=== PATIENT | male | born 1990 | race Caucasian/White ===

== ENCOUNTER 2018-02-17 16:38 | Emergency (ER) | payer BC, SELFPAY ==
[2018-02-17 16:39] VITALS: BP 160/106; PULSE 86; RESP 16; TEMP 36.7; O2SAT 100
--- NOTE | 2018-02-17 16:59 | ED.RN ---
PT WITH PARTIAL AMPUTATION OF TIP OF LEFT INDEX FINGER. SITE BLEEDING. COVERED WITH 4X4 GAUZE DRESSING. DR. HAYNES AT BEDSIDE.
--- NOTE | 2018-02-17 17:09 | RAD_ITS ---
STUDY: X-RAY - LEFT HAND REASON FOR EXAM: Male, 27 years old. Laceration index finger TECHNIQUE: 3 view(s) of the hand. COMPARISON: None. FINDINGS: Normal radiocarpal articulation. Normal distal radioulnar joint. Normal visualized carpal bones. Normal carpal articulations Normal carpometacarpal articulation of the thumb. Normal second through fifth carpometacarpal joints. Normal metacarpi. Normal metacarpophalangeal joint of the thumb. Normal interphalangeal joint of the thumb. Normal proximal and distal phalanges of the thumb. Normal metacarpophalangeal joints of the second through fifth fingers. Normal proximal and distal interphalangeal joints of the second through fifth fingers. There is been amputation of the soft tissue and tip of the second digit. There is a punctate foreign body adjacent to the radial side of the distal phalanx. There is overlying soft tissue irregularity. RAD/Hand Min 3 Views IMPRESSION: Amputation of the tuft and soft tissue of the distal phalanx of the second digit Electronically Signed: Pamela Estevez MD at 17:43 EST Tel , Service support ,
--- NOTE | 2018-02-17 17:16 | ED.VISSUMM ---
- ER Visit Summary Date of Service: 02/17/18 Chief Complaint: [] Amputation tip of left index finger at home today using cutting tool History of Present Illness: The patient is a 27 M [] was using a cutting tool he is right-hand dominant he suffered amputation of the tip of the left index finger, no other complaints his tetanus status is unclear Physical Examination: [] Vital signs are within normal range, his general medical exam is unremarkable head neck chest abdomen unremarkable the left hand the only issue is the tip of the left index finger there is a complete amputation mid nail level there is no bony prominence or step-off. DIP PIP IP joint flexion fully intact wrist hand function is normal the rest of exam is unremarkable Test Results: [] Emergency Department Course and Treatment: [] He received immediate digital block x-ray of the hand tetanus update discussion with orthopedics Dr. Baum recommended the patient be seen by hand service, hand service related to plastics was not available tonight per staff We then contacted [facility] emergency department, [place] they have the hand service accepted him he will be transferred there for further management Wound was cleansed bulky hand dressing applied oral Keflex oral [place] to help with pain he is instructed to go directly to [facility] for hand management Treatment Plan: [] Disposition: [] Transfer via personal car to [facility] emergency department Impression: [] Amputation tip left index finger This note was generated with [employer] dictation software. It may contain incorrect words, spelling, and punctuation that were not noted in review of the chart prior to signing ED Disposition - Plan for ED Patient: Chief Complaint: Laceration Referrals: Baudilio Samuel III, MD [STAFF PHYSICIAN] -
[2018-02-17] MEDS: Diphth,Pertuss(Acell),Tet Vac 0.5 ML Vial IM (17:55)
--- NOTE | 2018-02-17 18:37 | ED.DEP ---
ED Disposition - Plan for ED Patient: Chief Complaint: Laceration Instructions: ED Laceration Amputation Finger Tip Open Tx Prescriptions: Hydrocodone Bitart/Apap 5-325 [[place] 5MG-325MG] 1 tab PO Q4H PRN PRN 2 Days #10 tab PRN Reason: Pain Cephalexin [Keflex] 500 mg PO Q6 #40 cap Referrals: Baudilio Samuel III, MD [STAFF PHYSICIAN] - Additional Instructions: Go directly to [facility] emergency department to be seen by the hand surgery team
--- NOTE | 2018-02-17 18:40 | DCINST.ED_ITS ---
ED Disposition - Plan for ED Patient: Chief Complaint: Laceration Instructions: ED Laceration Amputation Finger Tip Open Tx Prescriptions: Hydrocodone Bitart/Apap 5-325 [[place] 5MG-325MG] 1 tab PO Q4H PRN PRN 2 Days #10 tab PRN Reason: Pain Cephalexin [Keflex] 500 mg PO Q6 #40 cap Referrals: Baudilio Samuel III, MD [STAFF PHYSICIAN] - Additional Instructions: Go directly to [facility] emergency department to be seen by the hand surgery team
[2018-02-17] MEDS: Cephalexin 250 MG Capsule 500 MG PO (18:51)
[2018-02-17 19:03] VITALS: BP 152/90; PULSE 91; RESP 15; O2SAT 99
--- NOTE | 2018-02-17 19:03 | ED.RN ---
PT GIVEN WRITTEN AND VERBAL DISCHARGE INSTRUCTIONS AND HOME GOING PRESCRIPTIONS. PT VERBALIZES UNDERSTANDING. PT SENT WITH DISC. HAND WRAPPED. PT TOLERATED WELL. AMBULATES OUT OF DEPT BY SELF. [facility] NOTIFIED.
--- OUTSIDE RECORDS SUMMARY | 2018-04-06 02:32 | XMS RPT_ITS ---
:1990 Author Organization OHIP Care Team Providers Name Role Phone MARGARITA TOM Admitting Unavailable MARGARITA TOM Attending Unavailable AA NO PCP, NO PCP Primary Care Unavailable YURY LOZANO Admitting Unavailable YURY LOZANO Attending Unavailable AA NO PCP, NO PCP Primary Care Unavailable Marv Norris Attending Unavailable Lorin Clemente Primary Care Unavailable PROBLEMS PROBLEMS DATE TYPE CONDITION / CODE ATTENDING STATUS SOURCE 03/12/2018 Active LACERATION W/O FB YURY LOZANO Active [facility] LT HAND INITIAL / B Hospital S61.412A(ICD-10) Repository 03/12/2018 Principle LACERATION W/O FB YURY LOZANO Active [facility] Diagnosis LT HAND INITIAL / B Hospital S61.412A(ICD-10) Repository 03/12/2018 Secondary ACQUIRED ABSENCE YURY LOZANO Active [facility] Diagnosis OF LEFT FINGERS / B Hospital Z89.022(ICD-10) Repository 02/28/2018 Active CMPL TRAUMAT MCP MARGARITA TOM Active [facility] AMP LT IF INITIAL Hospital / Repository S68.111A(ICD-10) 02/28/2018 Principle PART TRAU VAISHALI MARGARITA Active [facility] Diagnosis TRANSPHAL AMP LT Hospital IF INIT / Repository S68.621A(ICD-10) 02/28/2018 Secondary CNTCT PWR GARDN VAISHALI MARGARITA Active [facility] Diagnosis HND TOOL MACH Hospital INIT / Repository W29.3XXA(ICD-10) 02/17/2018 Unknown R52 - Pain, [place], Active [place] unspecified / [facility] R52(ICD-10) Hospital Repository PROCEDURES PROCEDURES No Procedure Records FoundRESULTS RESULTS XR HAND LEFT 3 PLUS Observed: 02/27/2018 Status: F Source: [facility] VIEWS 3:45 PM HOSPITAL REPOSITORY LEFT HAND History: Hand pain, second digit injury, laceration Findings: Three views show partial amputation with soft tissue and bony loss of the tuft of the second distal phalanx. There is adjacent soft tissue swelling and laceration. There is no joint dislocation or periosteal reaction. There is overlying stabilizing device that could obscure other abnormalities. IMPRESSION: Partial amputation with bone and soft tissue loss of the second distal phalanx. Report Dictated on Authenticated by: Karina Jones On: 02/27/2018 15:42 Read by: KARINA JONES MD Date: 02/27/2018 15:42 EMERGENCY DEPARTMENT Observed: 02/17/2018 Status: F Source: [place] SUMMARY 11:00 PM [facility] REPOSITORY [facility] Medical Records Department [address] [place] [address] Emergency Department Summary 02/17/18 1716 MR#: [id number] Acct: [id number] Name: GRACIELA BETANCOURT Rep #: [id number] : 1990 27 From: Marv Norris MD PCP: Lorin Clemente MD Status: DEP ER - ER Visit Summary Date of Service: 02/17/18 Chief Complaint: [] Amputation tip of left index finger at home today using cutting tool History of Present Illness: The patient is a 27 M [] was using a cutting tool he is right-hand dominant he suffered amputation of the tip of the left index finger, no other complaints his tetanus status is unclear Physical Examination: [] Vital signs are within normal range, his general medical exam is unremarkable head neck chest abdomen unremarkable the left hand the only issue is the tip of the left index finger there is a complete amputation mid nail level there is no bony prominence or step-off. DIP PIP IP joint flexion fully intact wrist hand function is normal the rest of exam is unremarkable Test Results: [] Emergency Department Course and Treatment: [] He received immediate digital block x-ray of the hand tetanus update discussion with orthopedics Dr. Baum recommended the patient be seen by hand service, hand service related to plastics was not available tonight per staff We then contacted [facility] emergency department, [place] they have the hand service accepted him he will be transferred there for further management Wound was cleansed bulky hand dressing applied oral Keflex oral [place] to help with pain he is instructed to go directly to [facility] for hand management Treatment Plan: [] Disposition: [] Transfer via personal car to [facility] emergency department Impression: [] Amputation tip left index finger This note was generated with [employer] dictation software. It may contain incorrect words, spelling, and punctuation that were not noted in review of the chart prior to signing ED Disposition - Plan for ED Patient: Chief Complaint: Laceration Referrals: Baudilio Samuel III, MD [STAFF PHYSICIAN] - What to do if you have Problems For any increased pain, shortness of breath, bleeding, nausea or vomiting, chest pain, or any unexpected problems, contact your Primary Care Provider. Call [facility] ([phone]) or report to the closest Emergency Room. Call 911 if necessary. 02/17/18 2300 <Electronically signed by Marv Norris MD> Date Marv Norris MD Cosigner Signature (If Indicated): Date CC: Lorin Clemente MD DISCHARGE INSTRUCTION Observed: 02/17/2018 Status: F Source: [place] 6:40 PM [facility] REPOSITORY [facility] Medical Records Department [address] [place] [address] Discharge Instruction 02/17/18 1837 MR#: [id number] Acct: [id number] Name: GRACIELA BETANCOURT Rep #: [id number] : 1990 27 From: Marv Norris MD PCP: Lorin Clemente MD Status: REG ER ED Disposition - Plan for ED Patient: Chief Complaint: Laceration Instructions: ED Laceration Amputation Finger Tip Open Tx Prescriptions: Hydrocodone Bitart/Apap 5-325 [[place] 5MG-325MG] 1 tab PO Q4H PRN PRN 2 Days #10 tab PRN Reason: Pain Cephalexin [Keflex] 500 mg PO Q6 #40 cap Referrals: Baudilio Samuel III, MD [STAFF PHYSICIAN] - Additional Instructions: Go directly to [facility] emergency department to be seen by the hand surgery team What to do if you have Problems For any increased pain, shortness of breath, bleeding, nausea or vomiting, chest pain, or any unexpected problems, contact your Primary Care Provider. Call [facility] ([phone]) or report to the closest Emergency Room. Call 911 if necessary. 02/17/18 1840 <Electronically signed by Marv Norris MD> Date Marv Norris MD Cosigner Signature (If Indicated): Date CC: Lorin Clemente MD HAND MIN 3 VIEWS Observed: 02/17/2018 Status: F Source: [place] 5:10 PM [facility] REPOSITORY [facility] Imaging Services [address] [place] [address] Hand Min 3 Views MR#: [id number] Acct: [id number] Name: GRACIELA BETANCOURT Rep #: [id number] : 1990 M 27 From: Pamela Estevez MD PCP: Lorin Clemente MD Status: REG ER Study: Hand Min 3 Views Date of Exam: 02/17/18 Exam# [id number] Ordering Dr: Marv Norris MD STUDY: X-RAY - LEFT HAND REASON FOR EXAM: Male, 27 years old. Laceration index finger TECHNIQUE: 3 view(s) of the hand. COMPARISON: None. FINDINGS: Normal radiocarpal articulation. Normal distal radioulnar joint. Normal visualized carpal bones. Normal carpal articulations Normal carpometacarpal articulation of the thumb. Normal second through fifth carpometacarpal joints. Normal metacarpi. Normal metacarpophalangeal joint of the thumb. Normal interphalangeal joint of the thumb. Normal proximal and distal phalanges of the thumb. Normal metacarpophalangeal joints of the second through fifth fingers. Normal proximal and distal interphalangeal joints of the second through fifth fingers. There is been amputation of the soft tissue and tip of the second digit. There is a punctate foreign body adjacent to the radial side of the distal phalanx. There is overlying soft tissue irregularity. RAD/Hand Min 3 Views IMPRESSION: Amputation of the tuft and soft tissue of the distal phalanx of the second digit Electronically Signed: Pamela Estevez MD at 17:43 EST Tel , Service support , CC: MD Luis Norris; Lorin Clemente MD Crts: Signed ALLERGIES ALLERGIES DATE TYPE / CODE NAME / CODE REACTION SEVERITY SOURCE 02/17/2018 Drug No Known Unknown [facility] Allergy/4160 Allergies/F00 Hospital 65723(SNOMED 8677001(RXNOR Repository CT) M) Drug No Known Drug [facility] Allergy/4160 Allergies/900 Hospital 13326(SNOMED 590(RXNORM) Repository CT) ENCOUNTERS ENCOUNTERS ADMIT/DISCHARGE ACCOUNT NUMBER ADMITTING ENCOUNTER LOCATION SOURCE CLASS 02/27/2018/02/28/20 [id number] [facility] Ambulatory Building:[address] Repository 02/17/2018/02/18/20 [id number] [facility] Ambulatory Building[address] [place] SMHLUR03Hsb: Hospital [id number] Repository 02/17/2018/02/18/20 [id number] Emergency [address] ding:ED Repository PAYERS PAYERS ENCOUNTER GUARANTOR PAYER SUBSCRIBER SOURCE 02/27/2018 [facility] Insurance:[facility] B: PPOPolic Number: B: Repository [id number] [address] Date:[id number] [place], [place] [id number] [address]Yrc: [phone]: [phone] , [place] [address]Fwz: [phone] (HP) [phone] (HP) () 02/17/2018 [facility] Insurance:[facility] B: PPOPolicy Number: B: Repository [id number] [address] Date:1791-65-[address] [place] [address], [place] [facility] [address]Spm: [phone]: [phone]) , [place] [address]Xzp: [phone] () [phone] (HP) () 02/17/2018 GRACIELA [facility] MOHAMUD [place] JADON Insurance:[facility] LEX [facility] [address] Number: B: [id number] [id number] Repository [address]Tpo: (878) Date:[phone] () [id number] [place] [address]MU: 02/17/2018 Secondary NOT GIVENUNK [place] Insurance:SELF PAY [facility] Number: Effective Repository Date:2018-02-17
== END 2018-02-17 19:12 | disposition home or self-care (01) ==
LOC: ED 17:27
PROVIDERS: Emergency Provider Emergency Medicine; Family Provider Family Medicine; PCP Family Medicine
DX: S61.301A Unspecified open wound of left index finger with damage to nail, initial encounter (principal); W26.8XXA Contact with other sharp object(s), not elsewhere classified, initial encounter; Y93.9 Activity, unspecified; Y92.9 Unspecified place or not applicable
CPT/HCPCS: 73130; 90715; 99283

== ENCOUNTER → 2020-02-14 14:57 | Outpatient (CLI) | payer BC, SELFPAY ==
[2020-02-14 11:01] VITALS: BMI 18.8
== END ==
PROVIDERS: PCP Family Medicine; Referring Provider Physician Assistant Medical; Visit Provider Physician Assistant Medical
DX: U07.1 COVID-19 (principal)
CPT/HCPCS: 87635; U0003

== ENCOUNTER 2021-05-16 10:03 | Outpatient (CLI) | payer BC, SELFPAY ==
--- NOTE | 2021-05-16 10:09 | RAD_ITS ---
STUDY: X-RAY - ESOPHAGUS (BARIUM SWALLOW) WITH FLUOROSCOPY REASON FOR EXAM: Male, 30 years old. DYSPHAGIA 12MM TABLET TECHNIQUE: 17 view(s) of the esophagus were obtained following swallowing of barium. FLUOROSCOPY TIME (if supplied): (31 seconds) minutes/seconds COMPARISON: None. FINDINGS: There is no demonstrated esophageal foreign body. There is no demonstrated stricture or mucosal abnormality. Normal gastroesophageal junction, without a demonstrated hiatal hernia. The patient ingested a 12 mm tablet of barium without any difficulty. Normal visualized aortic arch and descending thoracic aorta. Normal visualized pulmonary parenchyma. Normal visualized osseous structures of the thorax. RAD/Esophagus Single Contrast IMPRESSION: Normal plain film x-ray examination (barium swallow) of the esophagus. Electronically Signed: Donnie Silvestre MD at 10:37 EST ,
== END 2021-05-16 23:59 | disposition home or self-care (01) ==
LOC: RAD 10:05
PROVIDERS: PCP Family Medicine; Visit Provider Internal Medicine Gastroenterology
DX: R13.10 Dysphagia, unspecified (principal)
CPT/HCPCS: 74220